=== PATIENT | male | born 1980 | race Caucasian/White ===

== ENCOUNTER 2019-09-04 21:38 | Observation (INO) | payer BC ==
[~2019-09-04] VITALS: Ht 177.8 cm; Wt 107.5 kg
--- NOTE | 2019-09-04 21:56 | NUR ---
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 B/P-124/80, HR-84, SR ON EKG, 96% R/A. PT RECEIVED 50MCG FENTANYL, 324 ASPIRIN AND HEPARIN GTT 12 UNITS/HR AT [facility]. MONITORS APPLIED, SIDERAILS UP X2, CALL LIGHT WITHIN REACH
[2019-09-04 22:14] LABS: BASOPHILS # (AUTO) 0.02 x10^3/uL (0-0.1); BASOPHILS % (AUTO) 0 % (0-1); EOSINOPHILS # (AUTO) 0.02 x10^3/uL (0-0.4); EOSINOPHILS % (AUTO) 0 % (1-7); LYMPHOCYTES # (AUTO) 1.38 x10^3/uL (1-3.4); LYMPHOCYTES % (AUTO) 11 % (22-44); MD NO; MEAN CORPUSCULAR HEMOGLOBIN 30.6 pg (27.5-34.5); MEAN CORPUSCULAR HGB CONC 33.3 g/dL (33.2-36.2); MEAN CORPUSCULAR VOLUME 92.1 fL (81-97); MEAN PLATELET VOLUME 8.7 fL (7.4-10.4); MONOCYTES % (AUTO) 4 % (2-9); NEUTROPHILS % (AUTO) 85 % (42-75); PLATELET COUNT 268 x10^3/uL (130-400); RED BLOOD COUNT 4.74 x10^6/uL (4.38-5.82); RED CELL DISTRIBUTION WIDTH 13.1 % (9.4-14.8)
[2019-09-04] MEDS ORDERED: RIVA10TA2 PO (22:17)
[2019-09-04] MEDS ORDERED: GLIM1TAB3 PO (22:17)
[2019-09-04] MEDS ORDERED: STATIN (22:17)
[2019-09-04] MEDS ORDERED: LISI2.5T PO (22:17)
[2019-09-04 22:27] LABS: ALBUMIN 2.9 g/dL (3.4-5.0); ANION GAP 15 mmol/L (5-15); CHLORIDE 101 mmol/L (98-107); CREATININE 1.09 mg/dL (0.7-1.3)
[2019-09-04 22:31] LABS: TROPONIN I 0.042 ng/mL (0.000-0.045)
--- NOTE | 2019-09-04 23:00 | NUR ---
PT RESTING ON GURNEY WATCHING TV, DENIES NEEDS OR PAIN, MONITORS IN PLACE, CALL LIGHT WITHIN REACH. AWAITING ADMIT
[2019-09-04] MEDS ORDERED: NITROGLYCERIN OINT 2%, 1GM TP ONE (23:57)
--- NOTE | 2019-09-04 23:59 | NUR ---
PT MEDICATED PER MAR
[2019-09-05] VITALS (10 sets, daily range): BP systolic 119–167; BP diastolic 77–116
[2019-09-05] MEDS ORDERED: NITROGLYCERIN OINT 2%, 1GM TP ONE
[2019-09-05] MEDS ORDERED: ONDANSETRON 2MG/ML, 2ML IVPush PRN (00:30)
[2019-09-05] MEDS ORDERED: ACETAMINOPHEN 325 MG TABLET PO PRN (00:30)
--- NOTE | 2019-09-05 00:37 | NUR ---
PROVIDED PT WITH DRINK AND SANDWICH, DENIES FURTHER NEEDS
[2019-09-05] MEDS ORDERED: CALCIUM CARBONATE 500 MG TAB.CHEW ONE (03:49)
[2019-09-05] MEDS ORDERED: CALCIUM CARBONATE 500 MG TAB.CHEW PO PRN (04:00)
[2019-09-05] MEDS ORDERED: CALCIUM CARBONATE 500 MG TAB.CHEW PO ONE (04:00)
[2019-09-05] MEDS ORDERED: PANTOPRAZOLE 40 MG IV IVPush SCH (05:00)
[2019-09-05] MEDS ORDERED: ASPIRIN 81 MG TABLET EC PO SCH (06:00)
[2019-09-05 06:05] LABS: TROPONIN I < 0.015 ng/mL (0.000-0.045)
[2019-09-05 07:56] LABS: TROPONIN I 0.022 ng/mL (0.000-0.045)
[2019-09-05] MEDS ORDERED: NITROGLYCERIN 0.4 MG BOTTLE (25 TABS) SL ONE (08:59)
[2019-09-05] MEDS: NITROGLYCERIN 0.4 MG BOTTLE (25 TABS) SL PRN ×2 (09:03→09:10)
[2019-09-05] MEDS ORDERED: FAMO40TA4 PO (09:35)
[2019-09-05] MEDS ORDERED: CARV6.25 PO (09:35)
[2019-09-05] MEDS ORDERED: TORS20TA2 PO (09:35)
[2019-09-05] MEDS ORDERED: THIA100T27 PO (09:35)
[2019-09-05] MEDS ORDERED: FOLI-17 PO (09:35)
[2019-09-05] MEDS ORDERED: GLIM1TAB PO (09:35)
[2019-09-05] MEDS ORDERED: CLOP75TA52 PO (09:35)
[2019-09-05] MEDS ORDERED: LISI-167 PO (09:35)
[2019-09-05] MEDS ORDERED: PRAV40TA2 PO (09:35)
[2019-09-05] MEDS ORDERED: CLOPIDOGREL 75 MG TABLET PO SCH (12:00)
[2019-09-05] MEDS ORDERED: GLIMEPIRIDE 1 MG TABLET PO SCH (12:00)
[2019-09-05] MEDS ORDERED: LISINOPRIL 10 MG TABLET PO SCH ×2 (12:00→21:00)
[2019-09-05] MEDS ORDERED: FOLIC ACID 1 MG TABLET PO SCH (12:00)
[2019-09-05] MEDS ORDERED: CARVEDILOL 6.25 MG TABLET PO SCH (12:00)
[2019-09-05] MEDS ORDERED: TORSEMIDE 20 MG TABLET PO SCH (12:00)
[2019-09-05] MEDS ORDERED: THIAMINE 100MG TABLET PO SCH (12:00)
[2019-09-05] MEDS ORDERED: SPIR25TA PO (16:12)
[2019-09-05] MEDS ORDERED: PRAVASTATIN 40 MG TABLET PO SCH (21:00)
[2019-09-05] MEDS ORDERED: FAMOTIDINE 40 MG TABLET PO SCH (21:00)
== END 2019-09-05 17:10 | disposition home or self-care (01) ==
LOC: ED 22:40 → EDIP 09-05 00:16 → 5SO 09-05 00:47 → DCLOUNGE 09-05 17:01
PROVIDERS: ADMIT Internal Medicine; ATTEND Family Medicine
DX: R07.9 Chest pain, unspecified (principal); I21.4 Non-ST elevation (NSTEMI) myocardial infarction; I10 Essential (primary) hypertension; E78.5 Hyperlipidemia, unspecified; I25.110 Atherosclerotic heart disease of native coronary artery with unstable angina pectoris; F17.210 Nicotine dependence, cigarettes, uncomplicated; I11.0 Hypertensive heart disease with heart failure; I50.9 Heart failure, unspecified; K21.9 Gastro-esophageal reflux disease without esophagitis; Z79.01 Long term (current) use of anticoagulants
CPT/HCPCS: 36415; 80048; 82040; 84484; 85025; 93005; 93017; 96374; 99284; C8929; C9113; G0378; Q9957